=== PATIENT | female | born 1980 | race Caucasian/White ===

== ENCOUNTER 2024-10-01 15:27 | Emergency (ER) | payer BC, SELFPAY ==
[2024-10-01 15:34] VITALS: BP 114/74; PULSE 87; TEMP 37; O2SAT 100; BMI 21.1
--- NOTE | 2024-10-01 16:06 | ED.GENADUL1 ---
HPI HPI - General Adult General Chief complaint: Nausea/Vomiting/Diarrhea Stated complaint: DIARRHEA Time Seen by Provider: 10/01/24 15:36 Source: patient Mode of arrival: walk-in Limitations: no limitations History of Present Illness HPI narrative: This 44-year-old female presents chief complaint of watery diarrhea for the last 1 week. She states she has loose stool every time she eats. She reports some discomfort in the left lower quadrant. She is currently on her menstrual period. Related Data Home Medications ?Medication ?Instructions ?Recorded ?Confirmed No Known Home Medications 10/01/24 10/01/24 Allergies Allergy/AdvReac Type Severity Reaction Status Date / Time No Known Drug Allergies Allergy Verified 10/01/24 15:39 Review of Systems ROS Status of ROS 10 or more systems reviewed and unremarkable except as noted in history and below [facility] Social History Little interest or pleasure in doing things: not at all Feeling down, depressed, or hopeless: not at all Exam Narrative Exam Narrative: Patient does not appear acutely distressed. Her vital signs are stable. HEENT exam is normal to inspection. Neck is supple. Lung sounds are clear to auscultation bilaterally with good air entry. Heart has regular rate and rhythm. S1 and S2 are normal. Abdomen is soft and flat with mild tenderness in left lower quadrant. Bowel sounds are hypoactive and no masses are felt. Lower extremities are warm and dry. Speech and mentation are clear and intact. There is no facial asymmetry and she moves all extremities actively. Constitutional Vital Signs, click to edit/add: Last Vital Signs Temp 98.6 F 10/01/24 15:34 Pulse 67 10/01/24 17:51 Resp 14 10/01/24 17:51 BP 102/65 10/01/24 17:51 Pulse Ox 100 10/01/24 17:51 O2 Del Method Room Air 10/01/24 17:51 Course Vital Signs Vital signs: Vital Signs Temperature 98.6 F 10/01/24 15:34 Pulse Rate 87 10/01/24 15:34 Respiratory Rate 16 10/01/24 15:34 Blood Pressure 114/74 10/01/24 15:34 Pulse Oximetry 100 10/01/24 15:34 Oxygen Delivery Method Room Air 10/01/24 15:34 Temperature 98.6 F 10/01/24 15:34 Pulse Rate 67 10/01/24 17:51 Respiratory Rate 14 10/01/24 17:51 Blood Pressure 102/65 10/01/24 17:51 Pulse Oximetry 100 10/01/24 17:51 Oxygen Delivery Method Room Air 10/01/24 17:51 Medical Decision Making MDM Narrative Medical decision making narrative: Stool studies were ordered. Stool is Hemoccult negative. The rest of her blood work is benign. CT scan of the abdomen pelvis reveals constipation with retained fecal content. I suspect she is experiencing overflow diarrhea. She is placed on MiraLAX and is discharged to outpatient primary care follow-up with instructions to return for worsening symptoms. Lab Data Labs: Lab Results 10/01/24 10/01/24 Range/Units 15:46 16:09 WBC 4.0 (4.0-11.0) 10^3/uL RBC 4.23 (4.20-5.40) 10^6/uL Hgb 14.3 (12.0-16.0) g/dL Hct 40.1 (36.0-48.0) % MCV 94.8 (81.0-99.0) fL MCH 33.8 (26.7-34.0) pg MCHC 35.7 H (29.9-35.2) g/dL RDW 11.2 (11.0-15.0) % Plt Count 182 (150-450) 10^3/uL MPV 11.4 (9.5-13.5) fL Neut % (Auto) 46.4 (43.0-75.0) % Lymph % (Auto) 36.3 (20.5-60.0) % Harrison % (Auto) 12.7 H (1.7-12.0) % Eos % (Auto) 3.7 (0.9-7.0) % Baso % (Auto) 0.7 (0.2-2.0) % Neut # (Auto) 1.9 (1.4-6.5) 10^3/uL Lymph # (Auto) 1.5 (1.2-3.8) 10^3/uL Harrison # (Auto) 0.5 (0.3-0.8) 10^3/uL Eos # (Auto) 0.2 (0.0-0.7) 10^3/uL Baso # (Auto) 0.0 (0.0-0.1) 10^3/uL Abs Immat Gran (auto) 0.01 (0.00-0.03) 10^3/uL Imm/Tot Granulo (auto) 0.2 (0.0-0.5) % Sodium 140 (136-145) mmol/L Potassium 4.2 (3.5-5.1) mmol/L Chloride 105 (98-107) mmol/L Carbon Dioxide 28.6 (21.0-32.0) mmol/L Anion Gap 10.6 BUN 17.0 (7.0-18.0) mg/dL Creatinine 0.86 (0.55-1.02) mg/dL Est GFR ( Amer) >60 (>=60 mL/min/1.73m^2) Est GFR (Non-Af Amer) >60 (>=60 mL/min/1.73m^2) BUN/Creatinine Ratio 19.8 Glucose 87 (74-106) mg/dL Calcium 8.8 (8.5-10.1) mg/dL Total Bilirubin 0.4 (0.2-1.0) mg/dL Direct Bilirubin 0.1 (0.0-0.2) mg/dL AST 17 (15-37) U/L ALT 23 (14-59) U/L Alkaline Phosphatase 63 (46-116) U/L Total Protein 6.7 (6.4-8.2) g/dL Albumin 3.3 L (3.4-5.0) g/dL Globulin 3.4 g/dL Albumin/Globulin Ratio 1.0 Lipase 41.0 (16.0-77.0) U/L Serum HCG, Qual Negative (NEGATIVE) Stool Occult Blood Negative C. difficile Toxin PCR Negative Discharge Plan Discharge Chief Complaint: Nausea/Vomiting/Diarrhea Clinical Impression: Overflow diarrhea Patient Disposition: Home, Self-Care Time of Disposition Decision: 18:16 Condition: Good Mode of Transportation: Private Vehicle Prescriptions / Home Meds: No Action No Known Home Medications Print Language: British Instructions: Constipation (ED) Additional Instructions: Take MiraLAX twice a day until you start passing solid stool. After that start taking MiraLAX once a day to prevent constipation. Drink extra fluids. Follow-up with your physician next week. Return for worsening symptoms. Referrals: Physician,Non-Staff, MD [Primary Care Provider] - 1 week
[2024-10-01 16:34] LABS: Hematocrit 40.1 % (36.0-48.0); Hemoglobin 14.3 g/dL (12.0-16.0); Immature Granulocytes Abs Auto 0.01 10^3/uL (0.00-0.03); Immature Granulocytes Pct Auto 0.2 % (0.0-0.5); Lymphocytes Absolute Auto 1.5 10^3/uL (1.2-3.8); Mean Corpuscular HGB Conc 35.7 g/dL (29.9-35.2); Mean Corpuscular Hemoglobin 33.8 pg (26.7-34.0); Mean Corpuscular Volume 94.8 fL (81.0-99.0); Platelet Count 182 10^3/uL (150-450); Red Blood Count 4.23 10^6/uL (4.20-5.40); White Blood Count 4.0 10^3/uL (4.0-11.0)
[2024-10-01 16:46] LABS: Anion Gap 10.6; Blood Urea Nitrogen 17.0 mg/dL (7.0-18.0); Calcium 8.8 mg/dL (8.5-10.1); Carbon Dioxide 28.6 mmol/L (21.0-32.0); Chloride 105 mmol/L (98-107); Estimated GFR (African America >60 (>=60 mL/min/1.73m^2); Estimated GFR (Non-African Ame >60 (>=60 mL/min/1.73m^2); Glucose 87 mg/dL (74-106); Potassium 4.2 mmol/L (3.5-5.1); Sodium 140 mmol/L (136-145)
[2024-10-01 16:49] LABS: Alanine Aminotransferase 23 U/L (14-59); Albumin Globulin Ratio 1.0; Albumin Level 3.3 g/dL (3.4-5.0); Alkaline Phosphatase 63 U/L (46-116); Aspartate Amino Transferase 17 U/L (15-37); Globulin 3.4 g/dL; Lipase 41.0 U/L (16.0-77.0); Total Protein 6.7 g/dL (6.4-8.2)
--- OUTSIDE RECORDS SUMMARY | 2024-10-01 17:08 | XMS_ITS | Encounter Summary ---
Author Organization [facility] Address [address] [place] [address] Care Team Providers Care Transport Analyst Name Role Phone IsauroEnzo bautista Primary Care Provider [phone] Encounter Details Date Type Department Care Team (Late st Contact Info) Description 02/06/2023 Clinisync Result Encounter [facility] External Department Unsolicited Provider, Generic External Data Social History Tobacco Use Types Packs/Day Years Used Date Smoking Tobacco: Never Assessed Comments Unknown Sex and Gender Information Value Date Recorded Sex Assigned at Not on file Legal Sex Female 8:06 PM EDT Gender Identity Not on file Sexual Orientation Not on file documented as of this encounter Plan of Treatment Not on file documented as of this encounter Procedures Procedure Name Priority Date/Time Associated Diagnosis Comments KEV BHAVYA DIGITAL SCREEN SELF REFERRAL W OR WO CAD BILATERAL 02/06/2023 12:59 PM EST documented in this encounter Results * KEV BHAVYA DIGITAL SCREEN SELF REFERRAL W OR WO CAD BILATERAL (02/06/2023 12:59 PM EST) Anatomical Region Laterality Modality Other 02/06/2023 12:5 9 PM EST Narrative 02/06/2023 1:05 PM EST EXAMINATION: SCREENING DIGITAL BILATERAL MAMMOGRAM WITH TOMOSYNTHESIS, 02/06/2023 TECHNIQUE: Screening mammography of the bilateral breasts was performed with tomosynthesis. 2D standard and 3D tomosynthesis combination imaging performed through both breasts in the MLO and CC projection. Computer aided detection was utilized in the interpretation of this exam. COMPARISON: Baseline study HISTORY: Screening. FINDINGS: The breasts are heterogeneously dense which can obscure small masses. There is no dominant mass architectural distortion or concerning grouping of microcalcification in either breast. IMPRESSION: No mammographic evidence of malignancy BIRADS: BIRADS - CATEGORY 1 Negative. Normal interval follow-up is recommended in 12 months. OVERALL ASSESSMENT - NEGATIVE A letter of notification will be sent to the patient regarding the results. The [employer] recommends annual mammograms for women 40 years and older. Interpreted by: Janusz Glass DO Signed by: Janusz Glass DO 02/06/23 Final result Procedure Note Radiology, Radiologist, - 02/06/2023 EXAMINATION: SCREENING DIGITAL BILATERAL MAMMOGRAM WITH TOMOSYNTHESIS, 02/06/2023 TECHNIQUE: Screening mammography of the bilateral breasts was performed with tomosynthesis. 2D standard and 3D tomosynthesis combination imaging performed through both breasts in the MLO and CC projection. Computeraided detection was utilized in the interpretation of this exam. COMPARISON: Baseline study HISTORY: Screening. FINDINGS: The breasts are heterogeneously dense which can obscure small masses.There is no dominant mass architectural distortion or concerning grouping of microcalcification in either breast. IMPRESSION: No mammographic evidence of malignancy BIRADS: BIRADS - CATEGORY 1 Negative. Normal interval follow-up is recommended in 12 months. OVERALL ASSESSMENT - NEGATIVE A letter of notification will be sent to the patient regarding theresults. The [employer] recommends annual mammograms for women40 years and older. Interpreted by: Janusz Glass DO Signed by: Janusz Glass DO 02/06/23 Final result [facility] External Data Provider [facility] Final Result documented in this encounter Visit Diagnoses Not on filedocumented in this encounter Care Teams Transport Analyst Relationship Specialty Start Date End Date Enzo Box DO [address] [address] [place] [id number] PCP - General Family Medicine 07/17/22 documented as of this encounter
--- OUTSIDE RECORDS SUMMARY | 2024-10-01 17:08 | XMS_ITS | Clinical Summary ---
Author Organization [facility] Address [address], [address] [place] [address] Care Team Providers Care Medical Billing Manager Name Role Phone Yanira Bonilla MEDICAL OFFICE RECEPTIONIST ASSISTANT - REMOTE SENSING ANALYST Primary Care Provider [phone] Allergies No known active allergies Medications norethindrone (JENCYCLA) 0.35 MG tabletIndicatio ns:Irregular menses Take 1 tablet by mouth daily 84 tablet 4 5 Active norethindrone (JENCYCLA) 0.35 MG tabletIndicatio ns:Irregular menses TAKE 1 TABLET BY MOUTH EVERY DAY 84 tablet 2 5 09/12/19 25 Discontinu ed(REORDER ) Active Problems Problem Noted Date Diagnosed Date Smoker 12/20/2020 Encounters Date Type Department Care Team Description 09/08/2024 10:15 AM EDT Office Visit [facility] Part of [address] [place] [id number] Ena Baltazar APRN - CNM Encounter for annual routine gynecological examination (Primary Dx); Screening mammogram, encounter for; Irregular menses from Last 3 Months Family History Medical History Relation Name Comments Cancer Maternal Grandmother Holly Bone Other Other No family h/o o varian or breast cancer .No family h/o DVT. Other Sister MVA Relation Name Status Comments Brother Alive Father Alive Maternal Grandfather Maternal Grandmother Ohlly Mother Alive Other Other Paternal Grandfather Paternal Grandmother Sister Social History Tobacco Use Types Packs/Day Years Used Date Smoking Tobacco: Former E-Cigarettes Smokeless Tobacco: Never Tobacco Cessation:Counseling Given: Yes Alcohol Use Standard Drinks/Week Comments Yes 0 (1 standard drink = 0.6 oz pur e alcohol) occ [facility] Utilities Answer Date Recorded In the past 12 months has th e electric, gas, oil, or water company threatened to shut off services in your home? No 09/08/2024 PHQ-2 Answer Date Recorded PHQ-9 Total Score 0 09/08/2024 Hunger Vital Sign Answer Date Recorded Within the past 12 months, y ou worried that your food would run out before you got the money to buy more. Never true 09/09/19 25 Within the past 12 months, t he food you bought just didn't last and you didn't have money to get more. Never true 09/08/2024 PRAPARE - Transportation Answer Date Re corded In the past 12 months, has l ack of transportation kept you from medical appointments or from getting medications? No 03/2024 In the past 12 months, has l ack of transportation kept you from meetings, work, or from getting things needed for daily living? No 09/08/2024 Housing Stability Vital Sign Answer Denis e Recorded In the last 12 months, was t here a time when you were not able to pay the mortgage or rent on time? No 09/08/2024 In the past 12 months, how m any times have you moved where you were living? 0 09/08/2024 At any time in the past 12 m [facility], were you homeless or living in a skilled nursing (including now)? No 09/08/2024 Food Insecurity Answer Date Recorded Within the past 12 months, y ou worried that your food would run out before you got the money to buy more. 1 09/08/2024 Within the past 12 months, t he food you bought just didn't last and you didn't have money to get more. 1 09/08/2024 Comments No Sex and Gender Information Value Date Recorded Sex Assigned at Female 09/06/2024 10:10 PM EDT Legal Sex Female 7:39 PM EST Gender Identity Not on file Sexual Orientation Not on file Last Filed Vital Signs Vital Sign Reading Time Taken Comments Blood Pressure 104/60 09/08/2024 9:57 AM EDT Pulse 72 10/26/2015 3:32 PM EDT Temperature - - Respiratory Rate 16 10/26/2015 3:32 PM EDT Oxygen Saturation - - Inhaled Oxygen Concentration - - Weight 62.7 kg (138 lb 3.2 oz) 09/08/2024 9:57 A M EDT Height 170.2 cm (5' 7 ) 09/08/2024 9:57 AM EDT Body Mass Index 21.65 09/08/2024 9:57 AM EDT Plan of Treatment Upcoming Encounters Date Type Department Care Team (Late st Contact Info) Description 09/14/2025 8:45 AM EDT Office Visit [facility] Part of [address] [place] [address] Ena Baltazar, MEDICAL OFFICE RECEPTIONIST ASSISTANT - CN[address] [place] [address] yearly Health Maintenance Due Date Last Done Comments Varicella vaccine (1 of 2 - 13+ 2-dose series) 09/04/1995 Hepatitis C screen 2000 DTaP/Tdap/Td vaccine (1 - Tdap) 2001 Hepatitis B vaccine (1 of 3 - 19+ 3-dose series) 2001 Lipids 2022 COVID-19 Vaccine ( - season) 2023 Flu vaccine (#1) 10/09/2024 HPV (without or with Pap) 11/24/2024 11/25/2019 Breast cancer screen 02/06/2025 02/06/2023 Depression Screen 09/08/2025 09/08/2024, 09/08/2024 Cervical cancer screen 02/07/2026 Pap smear 02/07/2026 02/07/2023, 11/09, 06/26/2018, Additional history exists HIV screen Completed 05/14/2013 HPV vaccine Aged Out No longer eligi ble based on patient's age to complete this topic Hepatitis A vaccine Aged Out No longe r eligible based on patient's age to complete this topic Hib vaccine Aged Out No longer eligi ble based on patient's age to complete this topic Meningococcal (ACWY) vaccine Aged Out No longer eligible based on patient's age to complete this topic Meningococcal B vaccine Aged Out No l onger eligible based on patient's age to complete this topic Pneumococcal 0-49 years Vaccine Aged Out No longer eligible based on patient's age to complete this topic Polio vaccine Aged Out No longer elig ible based on patient's age to complete this topic Procedures Procedure Name Priority Date/Time Associated Diagnosis Comments BICYCLE RENTAL CLERK CYTOLOGY Routine 02/07/2023 12:00 AM EST KEV BHAVYA DIGITAL SCREEN SELF REFERRAL W OR WO CAD BILATERAL Routine 02/06/2023 12:50 PM EST Breast cancer screening by mammogram HPV, HIGH RISK WITH GENOTYPING Routine 11/25/2019 8:00 PM EDT from Last 3 Months or Most Recently Relevant to Health Maintenance Results * BICYCLE RENTAL CLERK Cytology (02/07/2023 12:00 AM EST) Cytology Report Path Number: [id number] DIAGNOSIS Imaged ThinPrep Pap - Cervical (1 monolayer slide): Specimen Adequacy: Satisfactory for evaluation. - Endocervical/trans formation zone component present. Descriptive Diagnosis: Negative for intraepithelial lesion or malignancy. Cytotech Screener: EY Electronically Signed Out Colton HARDIN(ASCP) ey/02/13/2023 Source of Specimen: A: Imaged ThinPrep Pap - Cervical (1 monolayer slide) HPV Reflex?........... ...........HPV if ASCUS Clinical History Z12.4 Encounter for screening for malignant neoplasm of cervix LMP: 01/30/2023 Processing Lab: [address] [id number] Interpretation performed at [address] [phone] This Pap Test has been evaluated with the assistance of the ThinPrep Pap Test Imaging System. The Pap smear is a screening test primarily for squamous epithelial lesions, which is subject to both false negative and false positive results. Your patient should be reminded to consult you immediately if she experiences any suspicious signs or symptoms, regardless of her Pap smear result. GYNECOLOGIC CYTOLOGY REPORT Patient Name: VIKKI OSBORNE [facility] Rec: [address] [facility] ANATOMIC PATHOLOGY [address] [place] [address]. [place], [place] [address] [facility] [employer] CERVICAL MATERIAL 02/07/2023 023 8:16 AM EST Ena Baltazar MEDICAL OFFICE RECEPTIONIST ASSISTANT - CNInna PATHOLOGY/CYTOLO GY ORDERABLES Final Result [facility] [address] [phone] [facility] * KEV BHAVYA DIGITAL SCREEN SELF REFERRAL W OR WO CAD BILATERAL (02/06/2023 12:50 PM EST) Anatomical Region Laterality Modality Breast Bilateral Mammography 02/06/2023 12:5 7 PM EST Impressions 02/06/2023 12:59 PM EST No mammographic evidence of malignancy BIRADS: BIRADS - CATEGORY 1 Negative. Normal interval follow-up is recommended in 12 months. OVERALL ASSESSMENT - NEGATIVE A letter of notification will be sent to the patient regarding the results. The [employer] recommends annual mammograms for women 40 years and older. Narrative 02/06/2023 12:59 PM EST EXAMINATION: SCREENING DIGITAL BILATERAL MAMMOGRAM [...] concerning grouping of microcalcification in either breast. Ena Baltazar MEDICAL OFFICE RECEPTIONIST ASSISTANT - CNM IMG MAMMOGRAPHY ORDERABLES Final Result * HPV, High Risk with Genotyping (11/25/2019 8:00 PM EDT) HPV SOURCE .CERVIX 11/25/2019 8:00 PM EDT [employer] HPV, Genotype 16 Not Detected 11/25/2019 8:00 PM EDT [facility] HPV, High Risk Other Not Detected 11/25/2019 8:00 PM EDT [facility] HPV, Genotype 18 Not Detected 11/25/2019 8:00 PM EDT [facility] Comment: (NOTE) INTERPRETIVE INFORMATION: HPV by Nucleic Acid Amplification This test detects High Risk HPV types (16, 18, 31, 33, 35, 39, 45, 51, 52, 56, 58, 59, 66, and 68) and differentiates HPV 16 and 18 associated with cervical cancer and its precursor lesions. Sensitivity may be affected by specimen collection methods, stage of infection, and the presence of interfering substances. Results should be interpreted in conjunction with other available laboratory and clinical data. A negative high-risk HPV result does not exclude the presence of other high-risk HPV types, the possibility of future cytologic abnormalities, underlying CIN2-3, or cancer. This test is intended for medical purposes only and is not valid for the evaluation of suspected sexual abuse or for other forensic purposes. HPV testing should not be used for screening or management of atypical squamous cells of undetermined significance (ASCUS) in women under age 21. Performed By: [address] [place] [address] [employer] Online: Irma Baez MD 11/25/2019 8:00 PM EDT 11/25/2019 8:00 PM EDT Ena Baltazar MEDICAL OFFICE RECEPTIONIST ASSISTANT - CNM CHEMISTRY ORDERA BLES Final Result [facility] [address] [place] [address], [facility] [phone] [facility] [address] [place] [address], [facility] [phone] [facility] [address] [place] [address], [facility] [phone] from Last 3 Months or Most Recently Relevant to Health Maintenance Insurance [place] [employer] Care Teams Medical Billing Manager Relationship Specialty Start Date End Date Yanira Bonilla, MEDICAL OFFICE RECEPTIONIST ASSISTANT - REMOTE SENSING ANALYST [address] [place] [address] PCP - General Nurse Practitioner 05/14/17
--- OUTSIDE RECORDS SUMMARY | 2024-10-01 17:08 | XMS_ITS | Clinical Summary ---
Author Organization [facility] Address [address] [place] [address] Care Team Providers Care Horticultural Specialty Grower Name Role Phone Enzo Box Primary Care Provider Social History Tobacco Use Types Packs/Day Years Used Date Smoking Tobacco: Never Assessed Comments Unknown Sex and Gender Information Value Date Recorded Sex Assigned at Not on file Legal Sex Female 8:06 PM EDT Gender Identity Not on file Sexual Orientation Not on file Last Filed Vital Signs Vital Sign Reading Time Taken Comments Blood Pressure 108/74 04/30/2019 12:00 PM EST Pulse - - Temperature - - Respiratory Rate - - Oxygen Saturation - - Inhaled Oxygen Concentration - - Weight 73.6 kg (162 lb 3.2 oz) 04/30/2019 12:00 PM EST Height 170.2 cm (5' 7 ) 04/30/2019 12:00 PM EST Body Mass Index 25.4 04/30/2019 12:00 PM EST Plan of Treatment Health Maintenance Due Date Last Done Comments HPV/Cotest 2012 Mammogram 02/07/2024 02/06/2023, 02/06/2023 Influenza Vaccine (#1) 2024 Cervical Cancer Screening 02/07/2026 Pap Smear 02/07/2026 02/07/2023, 01/11, 11/25/2019, Additional history exists Insurance BS Care Teams Horticultural Specialty Grower Relationship Specialty Start Date End Date Enzo Box DO [address] [place] [address] PCP - General Family Medicine 07/17/22
--- NOTE | 2024-10-01 17:11 | CT_ITS ---
The [address] [address] Patient Name: JEROME OSBORNE MRN: [id number] date: 1980 Sex: F Assigned Patient Location: ED.MAIN Current Patient Location: ED.MAIN Accession/Order Number: [id number] Exam Date: 10/01/2024 17:30 Report Date: 10/01/2024 17:37 At the request of: ANDREW MAHARAJ MD Procedure: CT abdomen pelvis wo con CT Abdomen and Pelvis withoutcontrast TECHNIQUE: Axial imaging with 2-D reconstruction. . The CT exam was performed using one or more the following dose reduction techniques: Automated exposure control, adjustment of the MA and/or Kv according to patient size, or use of the iterative reconstruction technique. COMPARISON: None History: Left lower quadrant pain. Diarrhea. LIMITATIONS: None LOWER THORAX Unremarkable LIVER: Unremarkable GALLBLADDER: No gallbladder abnormality identified. BILE DUCTS: No dilatation SPLEEN: Unremarkable PANCREAS: Unremarkable ADRENAL GLANDS: Unremarkable KIDNEYS:Unremarkable AORTA: No abdominal aortic aneurysm identified. RETROPERITONEUM: No significant retroperitoneal abnormalities identified. MESENTERY:Unremarkable STOMACH:Unremarkable SMALL BOWEL: The small bowel loops are nondistended. APPENDIX: The appendix is normal. COLON: Moderate constipation URINARY BLADDER: Urinary bladder is unremarkable. REPRODUCTIVE SYSTEM: Reproductive structures are unremarkable. PNEUMOPERITONEUM: None PERITONEAL FLUID:None BONY STRUCTURES: Unremarkable ABDOMINAL WALL: Unremarkable CT/CT abdomen pelvis wo con IMPRESSION: No acute inflammatory changes or bowel obstruction. No nephrolithiasis or obstructive uropathy. Moderate constipation Impression dictated by: Lev Davis M.D. 10/01/2024 5:37 PM Dictation Location: [employer] Electronically authenticated by: [id number] Y Date: 10/01/2024 17:37
[2024-10-01 17:32] LABS: C. Difficile PCR NEGATIVE
[2024-10-01 17:51] VITALS: BP 102/65; PULSE 67; O2SAT 100
[2024-10-01 18:45] VITALS: BP 116/82; PULSE 72; O2SAT 98
== END 2024-10-01 18:45 | disposition home or self-care (01) ==
PROVIDERS: Emergency Provider Emergency Medicine
DX: R19.7 Diarrhea, unspecified (principal); R10.32 Left lower quadrant pain
CPT/HCPCS: 36415; 74176; 80048; 80076; 83690; 84703; 85025; 87045; 87046; 87427; 87493; 99285; G0328